=== PATIENT | female | born 2000 | race Caucasian/White ===

== ENCOUNTER 2018-03-13 09:45 | Emergency (ER) | payer OTHER ==
[~2018-03-13] VITALS: Ht 167.6 cm; Wt 52.2 kg
[2018-03-13] MEDS ORDERED: OSEL75CA PO (12:38)
[2018-03-13] MEDS ORDERED: TUSSIONEX PENN115 ML PO (12:38)
== END 2018-03-13 14:43 | disposition home or self-care (01) ==
LOC: ER 09:45
DX: R05 Cough (principal); N94.6 Dysmenorrhea, unspecified